=== PATIENT | female | born 1970 | race Caucasian/White ===

== ENCOUNTER 2018-04-22 13:57 | Emergency (ER) | payer BC ==
[2018-04-22] MEDS ORDERED: Sodium Chloride 0.9% 10 ML Syringe FLUSH PRN (14:41)
[2018-04-22] MEDS ORDERED: Dicyclomine 20 MG/2 ML SDV IM ONE (14:41)
[2018-04-22] MEDS ORDERED: Sodium Chloride 0.9% 1,000 ML IV ONE (14:42)
[2018-04-22] MEDS ORDERED: GI Cocktail Oral Solution 30 ML PO ONE (15:32)
[2018-04-22] MEDS ORDERED: HYDROmorphone 0.5 MG/0.5 ML Syringe IVPUSH ONE (15:51)
[2018-04-22 15:54] LABS: SODIUM,NA 139 mmol/L (135-145)
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
[2018-04-22] MEDS ORDERED: Morphine 2 MG/ML Syringe IVPUSH ONE (17:32)
[2018-04-22] MEDS ORDERED: Ondansetron 4 MG/2 ML SDV IV ONE (17:50)
--- NOTE | 2018-04-22 17:50 | CT ---
Clinical history: 47-year-old hypertensive 310 pound female with "severe" episodic abdominal pain. Th is afebrile diabetic patient who has had previous cholecystectomy is on metformin and has an elevated serum creatinine. WBC 10,500. Scan technique: Volume acquisition of data from the abdomen and pelvis obtained without oral or IV co ntrast on emergency basis while patient was lying supine on the Siemens multi slice scanner [facility]. All data archived in the PAC system for storage, reformatting axial/sagittal/coronal planes and study. Interpretation: Abnormal. 1. *Morbidly obese female with what appear to be focal inflammatory changes RLQ i.e. tiny calcified a ppendicolith, dilated appendix, pericecal inflammatory "dirty" peritoneal fat RLQ, small amount of fl uid in the ipsilateral paracolic gutter on the right and dilated loops of small bowel with differenti al air-fluid level suggesting severe ileus or early mechanical bowel obstruction. 2. Surgical clips gallbladder fossa right upper quadrant. Unenhanced liver, stomach and spleen unrema rkable. 3. Note: Large oval 6.5 x 7.5 cm diameter solid mass lesion left upper quadrant abdomen that appears to be separate from (framed by) the stomach, spleen, pancreas and left kidney. Adrenal gland? Recomm end ultrasound and/or MRI exam. 4. Normal right adrenal gland. Normal reniform size, axis and configuration without sign of renal cor tical mass lesion, nephrolithiasis or obstructive uropathy. Uterus right of midline and no adnexal ma ss lesions. 5. Densely calcified wall small caliber aorta iliac vessels. No aneurysm or dissection. Normal heart. 6. Multilevel disc disease and chronic arthritic changes of the lumbar spine. No ventral wall or ingu inal hernias. Lung bases clear. CONCLUSION: Probable acute appendicitis. Close clinical and laboratory correlation please. Large left adrenal mass.
== END 2018-04-22 18:36 ==
LOC: DL.ED 13:57
DX: K37 Unspecified appendicitis (principal); E78.00 Pure hypercholesterolemia, unspecified; I10 Essential (primary) hypertension; J44.9 Chronic obstructive pulmonary disease, unspecified; E11.9 Type 2 diabetes mellitus without complications; F17.210 Nicotine dependence, cigarettes, uncomplicated; Z79.899 Other long term (current) drug therapy
CPT/HCPCS: 36415; 74176; 80053; 81001; 81025; 82150; 83690; 85025; 96361; 96372; 96374; 96375; 99285; A9270; J0500; J1170; J2270; J2405; J7030; J7050

== ENCOUNTER 2021-08-10 08:06 | Emergency (ER) | payer BC ==
[~2021-08-10 08:06] MED LIST: Sodium Chloride 0.9% 10 ML Syringe FLUSH PRN
[2021-08-10] MEDS ORDERED: Albuterol/Ipratropium 3.0-0.5 MG/3 ML Neb Soln NEB ONE (08:31)
--- NOTE | 2021-08-10 08:31 | EDM.PDOC ---
ED HPI GENERAL MEDICAL PROBLEM - General Chief Complaint: Respiratory Problem Stated Complaint: RESPITORY DISTRESS Time Seen by Provider: 08/10/21 08:30 Source of Information: Reports: Patient, Old Records, RN, RN Notes Reviewed History Limitations: Reports: Respiratory Distress - History of Present Illness INITIAL COMMENTS - FREE TEXT/NARRATIVE: Pt presents to ED via POV with c/o SOB with known COVID infection. Pt was admitted to [facility] on 08/07/21. Pt was discharged from [facility] yesterday, 08/09/21, sent on on oxygen at 2L/min. Pt was hospitalized last week on day 12 of her COVID infection. She did not receive Remdesivir due to renal failure and late presentation. Pt states that she was dc'd yesterday because she asked to go home due to feeling "much better". Pt states that her O2 sats were in the low to middle 90s yesterday on 2L. Pt states that today she became increasingly SOB and her noticed that her O2 sats were decreasing into the 70s. Pt states t hat she did take a few puffs of her albuterol inhaler with some relief. Pt states that she was Rx dexamethasone but has not started it. Pt also denies fever. Admits to chest pain, shortness of breath, and a burning sensation in her arms. [facility] records reveal pt has a UTI which was not treated. Urine culture reported today with >100,000 colonies/ml E-Coli and E-Faecalis. While at [facility] pt was diagnosed with MENDEZ, improved with IV hydration, and had a "normal" renal US. Pt has Hx of carcinoid of the cecum in 2018, and left adrenal cortical carcinoma in 2018, COPD, DM type 2, anemia, CKD stage 2, HTN, and obesity. Duration: Constant, Waxing/Waning Location: Reports: Chest, Generalized Quality: Reports: Ache, Burning Severity: Severe Improves with: Reports: None Worsens with: Reports: None Associated Symptoms: Reports: No Other Symptoms - Related Data Allergies Allergy/AdvReac Type Severity Reaction Status Date / Time pioglitazone Allergy Unknown Hives Verified 08/10/21 08:50 cashew nut Allergy Edema Verified 08/10/21 08:50 walnut Allergy Edema Verified 08/10/21 08:50 rosuvastatin AdvReac Unknown Itching Verified 08/10/21 08:50 Home Meds: Home Meds Acetaminophen 650 mg PO Q4H PRN 07/26/18 [History] Albuterol/Ipratropium [DuoNeb 3.0-0.5 MG/3 ML] 3 ml NEB ASDIRECTED PRN 07/26/18 [History] Nystatin 15 gm TP BID PRN 07/26/18 [History] Ondansetron [Ondansetron ODT] 4 mg PO Q8H PRN 07/26/18 [History] carvediloL [Carvedilol] 3.125 mg PO BID 07/26/18 [History] Cholecalciferol (Vitamin D3) [Vitamin D3] 1,000 unit PO DAILY 10/30/18 [History] Famotidine [Pepcid] 10 mg PO ASDIRECTED PRN 10/30/18 [History] Gabapentin [Neurontin] 300 mg PO BID PRN 10/30/18 [History] Aspirin [Aspirin EC] 325 mg PO DAILY 08/10/21 [History] Insulin Degludec [Tresiba] 14 unit SQ BEDTIME 08/10/21 [History] Levothyroxine 175 mcg PO ACBREAKFAST 08/10/21 [History] atorvaSTATin [Lipitor] 20 mg PO BEDTIME 08/10/21 [History] metFORMIN [Glucophage] 1,000 mg PO BIDMEALS 08/10/21 [History] metFORMIN [Glucophage] 500 mg PO ACLUNCH 08/10/21 [History] Past Medical History Cardiovascular History: Reports: High Cholesterol, Hypertension Respiratory History: Reports: Bronchitis, Recurrent, COPD Gastrointestinal History: Reports: [employer] History: Reports: Musculoskeletal History: Reports: Other (See Below) Other Musculoskeletal History: bilateral foot drop Psychiatric History: Reports: Depression Endocrine/Metabolic History: Reports: Diabetes, Type II, Obesity/BMI 30+ Hematologic History: Reports: Anemia, Blood Transfusion(s) Oncologic (Cancer) History: Reports: Brain (Pituitary), Colon - Past Surgical History GI Surgical History: Reports: Cholecystectomy Social & Family History - Family History Family Medical History: No Pertinent Family History - Caffeine Use Caffeine Use: Reports: Coffee, Soda - Living Situation & Occupation Living situation: Reports: , with Spouse ED ROS GENERAL - Review of Systems Review Of Systems: Comprehensive ROS is negative, except as noted in HPI. ED EXAM, GENERAL - Physical Exam Exam: See Below Exam Limited By: No Limitations General Appearance: Alert, Mild Distress, Obese Eye Exam: Bilateral Eye: Normal Inspection Nose: Normal Inspection, No Blood Throat/Mouth: Normal Lips, Normal Voice, No Airway Compromise Head: Atraumatic, Normocephalic Neck: Normal Inspection, Non-Tender, Full Range of Motion Respiratory/Chest: Chest Non-Tender, Decreased Breath Sounds. No: Crackles, Rales, Rhonchi, Wheezing Cardiovascular: Regular Rate, Rhythm, No Edema GI/Abdominal: Normal Bowel Sounds, Soft, Non-Tender, Other (Benign obese abdomen) (Female) Exam: Deferred Rectal (Female) Exam: Heme - Stool Back Exam: Normal Inspection Extremities: Non-Tender, No Pedal Edema, Normal Capillary Refill. No: Cecelia's Sign Neurological: Alert, Oriented, Normal Cognition, No Motor/Sensory Deficits Psychiatric: Normal Mood Skin Exam: Warm, Dry, Intact, Normal Color, No Rash #1 Interpretation EKG Date: 08/10/21 Time: 08:09 Rhythm: Other (sinus rhythm) Rate (Beats/Min): 70 Carter: Normal P-Wave: Present QRS: RBBB ST-T: Other (abnormal T, consider ischemia, inferior leads) QT: Normal Comparison: NA - No Prior EKG Course - Vital Signs Last Recorded V/S: Last Vital Signs Temp 97 F 08/10/21 08:32 Pulse 69 08/10/21 08:32 Resp 14 08/10/21 08:32 BP 147/55 H 08/10/21 08:32 Pulse Ox 95 08/10/21 08:32 - Orders/Labs/Meds Orders: Active Orders 24 hr Category Date Time Status Peripheral IV Care [RC] . DIRECTED Care 08/10/21 08:01 Active RT Aerosol Therapy [RC] ASDIRECTED Care 08/10/21 08:31 Active CULTURE BLOOD [BC] Stat Lab 08/10/21 08:23 Results LACTIC ACID [CHEM] Routine Lab 08/10/21 11:12 Ordered UA RFX BETTY AND CULT IF INDIC [URIN] Stat Lab 08/10/21 08:00 Ordered Sodium Chloride 0.9% [Saline Flush] Med 08/10/21 08:00 Active 10 ml FLUSH ASDIRECTED PRN Blood Culture x2 Reflex Set [OM.PC] Stat Oth 08/10/21 08:56 Ordered Peripheral IV Insertion Adult [OM.PC] Routine Oth 08/10/21 08:00 Ordered Medication Orders Sodium Chloride (Sodium Chloride 0.9% 10 Ml Syringe) 10 ml FLUSH ASDIRECTED PRN PRN Reason: Keep Vein Open Last Admin: 08/10/21 09:16 Dose: 10 ml Documented by: [id number] Labs: Laboratory Tests 08/10/21 08/10/21 08/10/21 Range/Units 08:23 08:23 08:23 WBC 9.2 (5.0-10.0) 10^3/uL RBC 2.37 L (4.2-5.4) 10^6/uL Hgb 7.3 L D (12.0-16.0) g/dL Hct 22.7 L (37.0-47.0) % MCV 95.8 (80-100) fL MCH 30.8 (27.0-34.0) pg MCHC 32.2 L (33.0-35.0) g/dL Plt Count 197 (150-450) 10^3/uL Neut % (Auto) 77.5 H (42.2-75.2) % Lymph % (Auto) 13.2 L (20.5-50.1) % George % (Auto) 9.2 H (2-8) % Eos % (Auto) 0.0 L (1.0-3.0) % Baso % (Auto) 0.1 (0.0-1.0) % Add Manual Diff Yes Neutrophils % (Manual) 78 H (42-75) % Band Neutrophils % 8 % Lymphocytes % (Manual) 11 L (20-50) % Monocytes % (Manual) 3 (2-8) % Microcytosis 2+ moderate Macrocytosis 1+ slight PT (9.0-12.0) SEC INR (0.9-1.2) APTT (22.0-34.0) SEC Sodium 141 (136-145) mmol/L Potassium 4.7 (3.5-5.1) mmol/L Chloride 108 H (98-107) mmol/L Carbon Dioxide 17 L (21-32) mmol/L Anion Gap 20.7 H (7-13) mEq/L BUN 34 H (7-18) mg/dL Creatinine 1.63 H (0.55-1.02) mg/dL Est Cr Clr Drug Dosing 31.57 mL/min Estimated GFR (MDRD) 33 BUN/Creatinine Ratio 20.9 (No establ ref range) Glucose 329 H (70-99) mg/dL Lactic Acid 2.5 H* (0.4-2.0) mmol/L Calcium 7.8 L (8.5-10.1) mg/dL Magnesium 2.4 (1.8-2.4) mg/dL Ferritin (8-252) mg/mL Total Bilirubin 0.9 (0.2-1.0) mg/dL AST 26 (15-37) U/L ALT 18 (14-59) U/L Alkaline Phosphatase 50 (46-116) U/L Lactate Dehydrogenase (81-234) U/L Troponin I High Sens (<=51) pg/mL C-Reactive Protein (0.0-0.9) mg/dL B-Natriuretic Peptide (0-100) pg/ml Total Protein 6.2 L (6.4-8.2) g/dL Albumin 2.4 L (3.4-5.0) g/dL Globulin 3.8 Albumin/Globulin Ratio 0.63 08/10/21 08/10/21 08/10/21 Range/Units 08:23 08:23 08:23 WBC (5.0-10.0) 10^3/uL RBC (4.2-5.4) 10^6/uL Hgb (12.0-16.0) g/dL Hct (37.0-47.0) % MCV (80-100) fL MCH (27.0-34.0) pg MCHC (33.0-35.0) g/dL Plt Count (150-450) 10^3/uL Neut % (Auto) (42.2-75.2) % Lymph % (Auto) (20.5-50.1) % George % (Auto) (2-8) % Eos % (Auto) (1.0-3.0) % Baso % (Auto) (0.0-1.0) % Add Manual Diff Neutrophils % (Manual) (42-75) % Band Neutrophils % % Lymphocytes % (Manual) (20-50) % Monocytes % (Manual) (2-8) % Microcytosis Macrocytosis PT (9.0-12.0) SEC INR (0.9-1.2) APTT (22.0-34.0) SEC Sodium (136-145) mmol/L Potassium (3.5-5.1) mmol/L Chloride (98-107) mmol/L Carbon Dioxide (21-32) mmol/L Anion Gap (7-13) mEq/L BUN (7-18) mg/dL Creatinine (0.55-1.02) mg/dL Est Cr Clr Drug Dosing mL/min Estimated GFR (MDRD) BUN/Creatinine Ratio (No establ ref range) Glucose (70-99) mg/dL Lactic Acid (0.4-2.0) mmol/L Calcium (8.5-10.1) mg/dL Magnesium (1.8-2.4) mg/dL Ferritin 1239 H (8-252) mg/mL Total Bilirubin (0.2-1.0) mg/dL AST (15-37) U/L ALT (14-59) U/L Alkaline Phosphatase (46-116) U/L Lactate Dehydrogenase 395 H (81-234) U/L Troponin I High Sens 112 H* (<=51) pg/mL C-Reactive Protein 4.3 H (0.0-0.9) mg/dL B-Natriuretic Peptide 227 H (0-100) pg/ml Total Protein (6.4-8.2) g/dL Albumin (3.4-5.0) g/dL Globulin Albumin/Globulin Ratio 08/10/ Range/Units 08:23 WBC (5.0-10.0) 10^3/uL RBC (4.2-5.4) 10^6/uL Hgb (12.0-16.0) g/dL Hct (37.0-47.0) % MCV (80-100) fL MCH (27.0-34.0) pg MCHC (33.0-35.0) g/dL Plt Count (150-450) 10^3/uL Neut % (Auto) (42.2-75.2) % Lymph % (Auto) (20.5-50.1) % George % (Auto) (2-8) % Eos % (Auto) (1.0-3.0) % Baso % (Auto) (0.0-1.0) % Add Manual Diff Neutrophils % (Manual) (42-75) % Band Neutrophils % % Lymphocytes % (Manual) (20-50) % Monocytes % (Manual) (2-8) % Microcytosis Macrocytosis PT 10.9 D (9.0-12.0) SEC INR 1.1 (0.9-1.2) APTT 24.9 (22.0-34.0) SEC Sodium (136-145) mmol/L Potassium (3.5-5.1) mmol/L Chloride (98-107) mmol/L Carbon Dioxide (21-32) mmol/L Anion Gap (7-13) mEq/L BUN (7-18) mg/dL Creatinine (0.55-1.02) mg/dL Est Cr Clr Drug Dosing mL/min Estimated GFR (MDRD) BUN/Creatinine Ratio (No establ ref range) Glucose (70-99) mg/dL Lactic Acid (0.4-2.0) mmol/L Calcium (8.5-10.1) mg/dL Magnesium (1.8-2.4) mg/dL Ferritin (8-252) mg/mL Total Bilirubin (0.2-1.0) mg/dL AST (15-37) U/L ALT (14-59) U/L Alkaline Phosphatase (46-116) U/L Lactate Dehydrogenase (81-234) U/L Troponin I High Sens (<=51) pg/mL C-Reactive Protein (0.0-0.9) mg/dL B-Natriuretic Peptide (0-100) pg/ml Total Protein (6.4-8.2) g/dL Albumin (3.4-5.0) g/dL Globulin Albumin/Globulin Ratio Meds: Medications Generic Name Dose Route Start Last Admin Trade Name Freq PRN Reason Stop Dose Admin Sodium Chloride 10 ml 08/10/21 08:00 08/10/21 09:16 Sodium Chloride 0.9% 10 Ml Syringe FLUSH 10 ml ASDIRECTED PRN Administration Keep Vein Open Discontinued Medications Generic Name Dose Route Start Last Admin Trade Name Freq PRN Reason Stop Dose Admin Albuterol/Ipratropium 3 ml 08/10/21 08:31 08/10/21 08:40 Albuterol/Ipratropium 3.0-0.5 Mg/3 Ml Neb Soln NEB 08/10/21 08:32 3 ml ONETIME ONE Administration Dexamethasone 6 mg 08/10/21 08:42 08/10/21 09:54 Dexamethasone 4 Mg/Ml Sdv IVPUSH 08/10/21 08:43 6 mg ONETIME ONE Administration - Radiology Interpretation Free Text/Narrative:: [facility] [place] [facility] Final Radiology Report Call: [phone] assistance Online chat: [email or web address] Name: NIKITA NAVARRETE Age: 51Years F Date: 08/10/2021 SSN: -- : [id number] Study: CT CHEST WO CONT Requesting Physician: CATHIE COLE Images: [id number] Addl Studies: Provided Clinical History: COVID, hypoxia Contrast: Without Contrast Medium: Contrast Amount: Contrast Method: Page 1 of 2 PROCEDURE INFORMATION: Exam: CT Chest Without Contrast; Diagnostic Exam date and time: 08/10/2021 8:56 AM Age: 51 years old Clinical indication: Other: Covid, hypoxia TECHNIQUE: Imaging protocol: Diagnostic computed tomography of the chest without contrast. Radiation optimization: All CT scans at this facility use at least one of these dose optimization techniques: automated exposure control; mA and/or kV adjustment per patient size (includes targeted exams where dose is matched to clinical indication); or iterative reconstruction. COMPARISON: CT Chest Abdomen Pelvis wo Cont 08/04/2018 8:36 AM FINDINGS: Trachea: 1.5 cm right paratracheal node which may be reactive. Lungs: Moderate diffuse bilateral patchy ground-glass opacities throughout both lungs, right greater than left most compatible with Covid-19 pneumonitis. Pleural spaces: Unremarkable. No pneumothorax. No pleural effusion. Heart: Unremarkable. No cardiomegaly. No pericardial effusion. Aorta: Unremarkable. No aortic aneurysm. Lymph nodes: Few subcentimeter mediastinal nodes. Diaphragm: Small hiatal hernia is present. Spleen: The spleen is mildly prominent. Bones/joints: Unremarkable. No acute fracture. Soft tissues: Unremarkable. IMPRESSION: NIKITA NAVARRETE | Final Radiology Report CONFIDENTIALITY STATEMENT This report is intended only for use by the referring physician, and only in accordance with law. If you received this in error, call [phone]. Page 2 of 2 1. Moderate diffuse bilateral patchy ground-glass opacities throughout both lungs, right greater than left most compatible with Covid-19 pneumonitis. 2. 1.5 cm right paratracheal node which may be reactive. 3. Remainder of findings as described above. Thank you for allowing us to participate in the care of your patient. Dictated and Authenticated by: Nona Osborn MD 08/10/2021 10:27 AM Central Time ([place] & [place]) - Re-Assessments/Exams Free Text/Narrative Re-Assessment/Exam: 08/10/21 11:23 Pt refuses to be admitted, and chooses to leave AMA. I explained the exam and diagnostic findings to the pt, and that her comorbidities increase her risk of complications and from COVID, but she still insists on going home AMA. She has oxygen, nebulizers, and decadron at home and agrees to use them. I will prescribe Cipro for her untreated UTI. Pt is welcome to return to ER if she changes her mind or if her condition worsens. Departure - Departure Time of Disposition: 11:27 Disposition: Against Medical Advice 07 Condition: Serious Clinical Impression: Pneumonia due to COVID-19 virus, Hypoxia, History of COPD, History of diabetes mellitus, type II UTI (urinary tract infection) Qualifiers: Urinary tract infection type: site unspecified Hematuria presence: without hematuria Qualified Code(s): N39.0 - Urinary tract infection, site not specified CKD (chronic kidney disease) Qualifiers: Chronic kidney disease stage: unspecified stage Qualified Code(s): N18.9 - Chronic kidney disease, unspecified - Discharge Information *PRESCRIPTION DRUG MONITORING PROGRAM REVIEWED*: Not Applicable *COPY OF PRESCRIPTION DRUG MONITORING REPORT IN PATIENT SOHA: Not Applicable Instructions: COVID-19 Frequently Asked Questions, Urinary Tract Infection, Adult, Chronic Kidney Disease, Adult, [id number] Forms: ED Department Discharge Additional Instructions: Rx: Cipro 500mg for urinary tract infection. Take Dexamethasone (Decadron) as previously prescribed. Use oxygen at 2 liters continuously. Rest, avoid exertion. Call 911 or return to ER if you develop difficulty breathing or respiratory distress. Sepsis Event Note (ED) - Focused Exam Vital Signs: Vital Signs Temp Pulse Resp BP Pulse Ox Pulse Ox 10/10/21 08:32 97 F 69 14 147/55 H 95 08/10/21 08:31 70 93 L - My Orders Last 24 Hours: My Active Orders 08/10/21 08:23 CULTURE BLOOD [BC] Stat 08/10/21 08:31 RT Aerosol Therapy [RC] ASDIRECTED 08/10/21 08:56 Blood Culture x2 Reflex Set [OM.PC] Stat - Assessment/Plan Last 24 Hours: My Active Orders 08/10/21 08:23 CULTURE BLOOD [BC] Stat 08/10/21 08:31 RT Aerosol Therapy [RC] ASDIRECTED 08/10/21 08:56 Blood Culture x2 Reflex Set [OM.PC] Stat
[2021-08-10] MEDS ORDERED: Dexamethasone 4 MG/ML SDV IVPUSH ONE (08:42)
[2021-08-10 09:13] LABS: PTT,PARTIAL THROMBOPLSTIN TIME 24.9 SEC (22.0-34.0)
[2021-08-10 09:24] LABS: ANION GAP 20.7 mEq/L (7-13)
--- NOTE | 2021-08-10 10:27 | CT ---
PROCEDURE INFORMATION: Exam: CT Chest Without Contrast; Diagnostic Exam date and time: 08/10/2021 8:56 AM Age: 51 years old Clinical indication: Other: Covid, hypoxia TECHNIQUE: Imaging protocol: Diagnostic computed tomography of the chest without contrast. Radiation optimization: All CT scans at this facility use at least one of these dose optimization techniques: automated exposure control; mA and/or kV adjustment per patient size (includes targeted exams where dose is matched to clinical indication); or iterative reconstruction. COMPARISON: CT Chest Abdomen Pelvis wo Cont 08/04/2018 8:36 AM FINDINGS: Trachea: 1.5 cm right paratracheal node which may be reactive. Lungs: Moderate diffuse bilateral patchy ground-glass opacities throughout both lungs, right greater than left most compatible with Covid-19 pneumonitis. Pleural spaces: Unremarkable. No pneumothorax. No pleural effusion. Heart: Unremarkable. No cardiomegaly. No pericardial effusion. Aorta: Unremarkable. No aortic aneurysm. Lymph nodes: Few subcentimeter mediastinal nodes. Diaphragm: Small hiatal hernia is present. Spleen: The spleen is mildly prominent. Bones/joints: Unremarkable. No acute fracture. Soft tissues: Unremarkable. IMPRESSION: 1. Moderate diffuse bilateral patchy ground-glass opacities throughout both lungs, right greater than left most compatible with Covid-19 pneumonitis. 2. 1.5 cm right paratracheal node which may be reactive. 3. Remainder of findings as described above.
== END 2021-08-10 11:36 | disposition left against medical advice (07) ==
LOC: DL.ED 08:06
DX: U07.1 COVID-19 (principal); J12.82 Pneumonia due to coronavirus disease 2019; R09.82 Postnasal drip; J44.9 Chronic obstructive pulmonary disease, unspecified; I12.9 Hypertensive chronic kidney disease with stage 1 through stage 4 chronic kidney disease, or unspecified chronic kidney disease; E11.22 Type 2 diabetes mellitus with diabetic chronic kidney disease; N18.9 Chronic kidney disease, unspecified; N39.0 Urinary tract infection, site not specified; K21.9 Gastro-esophageal reflux disease without esophagitis; E78.00 Pure hypercholesterolemia, unspecified; E66.9 Obesity, unspecified; Z68.42 Body mass index [BMI] 45.0-49.9, adult; Z88.8 Allergy status to other drugs, medicaments and biological substances; Z91.018 Allergy to other foods; Z79.82 Long term (current) use of aspirin; Z79.84 Long term (current) use of oral hypoglycemic drugs; Z79.899 Other long term (current) drug therapy
CPT/HCPCS: 36415; 71250; 80053; 82272; 82728; 83605; 83615; 83735; 83880; 84484; 85025; 85610; 85730; 86140; 87040; 93005; 94640; 96374; 99285; J1100; J7620-GY

== ENCOUNTER 2022-08-26 17:00 | Emergency (ER) | payer BC ==
[2022-08-26] MEDS: Ciprofloxacin 500 MG Tab PO ONE (19:43)
[2022-08-26] MEDS: Phenazopyridine 95 MG Tab PO ONE (19:43)
== END 2022-08-26 19:51 | disposition home or self-care (01) ==
LOC: DL.ED 17:00
DX: N39.0 Urinary tract infection, site not specified (principal); J44.9 Chronic obstructive pulmonary disease, unspecified; E11.9 Type 2 diabetes mellitus without complications; E66.9 Obesity, unspecified; Z68.43 Body mass index [BMI] 50.0-59.9, adult; Z88.8 Allergy status to other drugs, medicaments and biological substances; Z91.018 Allergy to other foods; Z79.899 Other long term (current) drug therapy; Z79.82 Long term (current) use of aspirin; Z79.84 Long term (current) use of oral hypoglycemic drugs; Z87.891 Personal history of nicotine dependence
CPT/HCPCS: 81001; 87086; 87088; 87186; 99283; A9270

== ENCOUNTER 2022-11-11 17:55 | Inpatient (IN) | payer BC ==
[2022-11-11] MEDS ORDERED: methylPREDNISolone Sodium Succinate 125 MG/2 ML SDV IVPUSH ONE (18:06)
[2022-11-11] MEDS ORDERED: Albuterol/Ipratropium 3.0-0.5 MG/3 ML Neb Soln NEB ONE (18:06)
[2022-11-11] MEDS ORDERED: Magnesium Sulfate/Water 2 GM in Premix Bag 1 BAG IV ONE ×4 (18:09)
[2022-11-11 18:43] LABS: O2 DELIVERY DEVICE NASAL CANNULA
[2022-11-11 18:53] LABS: PCO2 ARTERIAL 32 mmHg (35-45)
[2022-11-11 18:54] LABS: BASE EXCESS ARTERIAL 2 mmol/L ((-2)-(+3)); BICARBONATE,ARTERIAL 24.9 mmol/L (22-26); O2 SATURATION ARTERIAL 100 % (95-100); PO2 ARTERIAL 154 mmHg (70-100)
[2022-11-11] MEDS: Sodium Chloride 0.9% 10 ML Syringe FLUSH PRN (18:54)
[2022-11-11 19:07] LABS: RESPIRATORY SYNCYTIAL VIR NAA NEGATIVE (NEGATIVE)
[2022-11-11 19:09] LABS: CORONAVIRUS COVID-19 NAA POSITIVE (NEGATIVE)
[2022-11-11] MEDS ORDERED: Albuterol 0.083% 2.5 MG/3 ML Neb Soln NEB ONE (19:32)
[2022-11-11 19:35] LABS: ANION GAP 14.8 mEq/L (7-13)
[2022-11-11 19:39] LABS: PTT,PARTIAL THROMBOPLSTIN TIME 24.6 SEC (22.0-34.0)
[2022-11-11] MEDS ORDERED: Bumetanide 1 MG/4 ML MDV IVPUSH ONE (19:39)
[2022-11-11] MEDS ORDERED: Heparin Sodium 5,000 Units/ML Vial IVPUSH ONE (19:43)
[2022-11-11] MEDS: Heparin Sodium/0.45% NaCl 25,000 UNITS/500 ML BAG IV SCH (20:20)
[2022-11-11] MEDS ORDERED: Carvedilol 6.25 MG Tab PO ONE (21:33)
[2022-11-11] MEDS ORDERED: Lactulose Soln 10 GM/15 ML 30 ML UD Cup PO ONE (23:55)
[2022-11-12] MEDS ORDERED: Albuterol/Ipratropium 3.0-0.5 MG/3 ML Neb Soln NEB ONE (00:49)
[2022-11-12] MEDS ORDERED: Benzonatate 100 MG Cap PO ONE (01:32)
[2022-11-12 05:13] LABS: PTT,PARTIAL THROMBOPLSTIN TIME 24.8 SEC (22.0-34.0)
[2022-11-12 05:15] LABS: ANION GAP 14.5 mEq/L (7-13)
[2022-11-12] MEDS ORDERED: Lactated Ringers 1,000 ML IV ONE (05:32)
[2022-11-12] MEDS ORDERED: Albuterol 0.083% 2.5 MG/3 ML Neb Soln NEB ONE (05:36)
[2022-11-12] MEDS ORDERED: Insulin Regular, Human 100 Units/ML 3 ML Vial IV ONE (05:36)
[2022-11-12] MEDS ORDERED: Sodium Chloride 0.9% 1,000 ML IV ONE (05:43)
[2022-11-12] MEDS ORDERED: Heparin Sodium 5,000 Units/ML Vial IVPUSH ONE ×2 (05:45→19:26)
[2022-11-12] MEDS: Sodium Chloride 0.9% 10 ML Syringe FLUSH PRN ×2 (06:18→15:16)
[2022-11-12] MEDS ORDERED: Bumetanide 1 MG/4 ML MDV IVPUSH ONE (06:28)
[2022-11-12] MEDS ORDERED: Calcium Gluconate 10% 1 GM/10 ML SDV IVPUSH ONE (07:01)
[2022-11-12 09:10] LABS: ANION GAP 16.8 mEq/L (7-13)
[2022-11-12] MEDS ORDERED: Sodium Polystyrene Sulfonate 15 GM/60 ML Susp 60 ML Bot PO ONE ×2 (09:18→15:15)
[2022-11-12 10:27] LABS: ALLEN TEST PERFORMED
[2022-11-12] MEDS: Heparin Sodium/0.45% NaCl 25,000 UNITS/500 ML BAG IV SCH (12:19)
[2022-11-12] MEDS ORDERED: Docusate Sodium 100 MG Cap PO PRN (13:05)
[2022-11-12] MEDS ORDERED: Ondansetron 4 MG Tab.DIS PO PRN (13:05)
[2022-11-12] MEDS ORDERED: Glucagon,Human Recombinant 1 MG Vial IM PRN (13:05)
[2022-11-12] MEDS ORDERED: Ondansetron 4 MG/2 ML SDV IVPUSH PRN (13:05)
[2022-11-12] MEDS ORDERED: 50% Dextrose in Water 50 ML Syringe IVPUSH PRN (13:05)
[2022-11-12 13:20] LABS: ANION GAP 14.1 mEq/L (7-13)
[2022-11-12] MEDS: Sodium Chloride 0.9% 1,000 ML IV SCH (15:08)
[2022-11-12] MEDS: Albuterol/Ipratropium 3.0-0.5 MG/3 ML Neb Soln NEB SCH ×3 (15:10→21:36)
[2022-11-12] MEDS: methylPREDNISolone Sodium Succinate 40 MG/1 ML SDV IVPUSH SCH ×2 (15:11→17:15)
[2022-11-12] MEDS ORDERED: Sodium Chloride 0.65% Nasal Spray 45 ML Bottle NAS PRN (16:35)
[2022-11-12] MEDS: Insulin Lispro 100 Units/ML 3 ML Vial SUBCUT SCH ×2 (17:13→21:46)
[2022-11-12] MEDS ORDERED: LORazepam 2 MG/ML SDV IVPUSH ONE (17:37)
[2022-11-12] MEDS: Acetaminophen 325 MG Tab PO PRN (21:36)
[2022-11-12] MEDS: Sodium Chloride 0.9% 10 ML Syringe FLUSH SCH (21:36)
[2022-11-13] MEDS: methylPREDNISolone Sodium Succinate 40 MG/1 ML SDV IVPUSH SCH ×4 (00:32→17:50)
[2022-11-13] MEDS: Albuterol/Ipratropium 3.0-0.5 MG/3 ML Neb Soln NEB SCH ×7 (02:15→21:53)
[2022-11-13] MEDS: Sodium Chloride 0.9% 1,000 ML IV SCH (03:47)
[2022-11-13 08:13] LABS: ANION GAP 13.2 mEq/L (7-13)
[2022-11-13] MEDS: Insulin Lispro 100 Units/ML 3 ML Vial SUBCUT SCH ×5 (08:34→21:53)
[2022-11-13] MEDS: Sodium Chloride 0.9% 10 ML Syringe FLUSH SCH ×2 (08:37→21:00)
[2022-11-13] MEDS: Heparin Sodium/0.45% NaCl 25,000 UNITS/500 ML BAG IV SCH (08:39)
[2022-11-13] MEDS: Acetaminophen 325 MG Tab PO PRN (17:51)
[2022-11-13] MEDS: Carvedilol 6.25 MG Tab PO SCH (17:53)
[2022-11-13] MEDS: Gabapentin 400 MG Cap PO SCH (20:30)
[2022-11-13] MEDS ORDERED: Bumetanide 1 MG Tab PO SCH (21:00)
[2022-11-13] MEDS ORDERED: atorvaSTATin 20 MG Tab PO SCH (21:00)
[2022-11-14] MEDS: methylPREDNISolone Sodium Succinate 40 MG/1 ML SDV IVPUSH SCH ×3 (00:09→12:08)
[2022-11-14] MEDS: Albuterol/Ipratropium 3.0-0.5 MG/3 ML Neb Soln NEB SCH ×3 (02:36→09:11)
[2022-11-14] MEDS ORDERED: Levothyroxine 100 MCG Tab PO SCH (06:00)
[2022-11-14] MEDS ORDERED: Levothyroxine 75 MCG Tab PO SCH (06:00)
[2022-11-14 06:59] LABS: ANION GAP 13.2 mEq/L (7-13)
[2022-11-14] MEDS ORDERED: Bumetanide 1 MG/4 ML MDV IVPUSH SCH (09:00)
[2022-11-14] MEDS ORDERED: Aspirin 325 MG Tab.EC PO SCH (09:00)
[2022-11-14] MEDS ORDERED: Famotidine 20 MG Tab PO SCH (09:00)
[2022-11-14] MEDS: Sodium Chloride 0.9% 10 ML Syringe FLUSH SCH (09:13)
[2022-11-14] MEDS: Sodium Chloride 0.9% 10 ML Syringe FLUSH PRN (09:16)
[2022-11-14] MEDS: Gabapentin 400 MG Cap PO SCH (09:17)
[2022-11-14] MEDS: Carvedilol 6.25 MG Tab PO SCH (09:17)
[2022-11-14] MEDS: Insulin Lispro 100 Units/ML 3 ML Vial SUBCUT SCH ×2 (09:18→12:05)
== END 2022-11-14 12:50 | disposition home or self-care (01) | DRG 137 ==
LOC: DL.ED 17:55 → DL.MS 11-12 11:51
PROVIDERS: ADMIT Hospitalist; ATTEND Hospitalist
DX: U07.1 COVID-19 (principal); E87.5 Hyperkalemia; N17.9 Acute kidney failure, unspecified; J44.1 Chronic obstructive pulmonary disease with (acute) exacerbation; H54.7 Unspecified visual loss; E78.00 Pure hypercholesterolemia, unspecified; K21.9 Gastro-esophageal reflux disease without esophagitis; F32.A Depression, unspecified; E11.9 Type 2 diabetes mellitus without complications; E66.9 Obesity, unspecified; F17.200 Nicotine dependence, unspecified, uncomplicated; Z68.43 Body mass index [BMI] 50.0-59.9, adult; Z91.018 Allergy to other foods; Z79.82 Long term (current) use of aspirin; Z79.4 Long term (current) use of insulin; Z79.84 Long term (current) use of oral hypoglycemic drugs; Z79.899 Other long term (current) drug therapy
CPT/HCPCS: 0241U; 36415; 36600; 71045; 80048; 80053; 81001; 82803; 82947; 83605; 83735; 83880; 84484; 85025; 85379; 85610; 85730; 87040; 93005; 94640; 99223; 99232; 99239; A9270-GY; J0610; J1644; J1815-GY; J2060; J2405; J2920; J2930; J3475; J3490; J7030; J7613-GY; J7620-GY

== ENCOUNTER 2023-01-19 12:01 | Emergency (ER) | payer BC ==
[2023-01-19] MEDS ORDERED: Sodium Chloride 0.9% 10 ML Syringe FLUSH PRN (12:05)
[2023-01-19 12:58] LABS: PTT,PARTIAL THROMBOPLSTIN TIME 22.3 SEC (22.0-34.0)
[2023-01-19 13:07] LABS: ANION GAP 14.3 mEq/L (7-13); CHLORIDE,CL 102 mmol/L (98-107); SODIUM,NA 137 mmol/L (136-145)
[2023-01-19 13:10] LABS: ESTIMATED GFR 20 mL/min (>=60)
[2023-01-19 13:27] LABS: CORONAVIRUS COVID-19 NAA NEGATIVE (NEGATIVE); RESPIRATORY SYNCYTIAL VIR NAA NEGATIVE (NEGATIVE)
[2023-01-19] MEDS ORDERED: Flumazenil 0.1 MG/ML 5 ML MDV IVPUSH PRN (14:29)
[2023-01-19] MEDS ORDERED: LORazepam 2 MG/ML SDV IVPUSH ONE (14:29)
== END 2023-01-19 15:04 ==
LOC: DL.ED 12:01
DX: D64.9 Anemia, unspecified (principal); R77.8 Other specified abnormalities of plasma proteins; E11.9 Type 2 diabetes mellitus without complications; E66.9 Obesity, unspecified; Z68.43 Body mass index [BMI] 50.0-59.9, adult; Z91.018 Allergy to other foods; Z79.82 Long term (current) use of aspirin; Z86.16 Personal history of COVID-19; Z79.899 Other long term (current) drug therapy; Z79.4 Long term (current) use of insulin; Z20.822 Contact with and (suspected) exposure to COVID-19
CPT/HCPCS: 0241U; 36415; 36430; 71045; 80053; 81001; 82150; 82272; 82947; 83605; 83690; 83735; 83880; 84100; 84145; 84443; 84484; 85025; 85379; 85610; 85730; 86140; 86850; 86900; 86901; 86920; 86922; 87040; 93005; 96374; 99285; J2060; P9016

== ENCOUNTER 2023-06-01 13:06 | Inpatient (IN) | payer BC ==
[2023-06-01] MEDS ORDERED: Sodium Chloride 0.9% 10 ML Syringe FLUSH PRN (13:43)
[2023-06-01] MEDS ORDERED: Ondansetron 4 MG/2 ML SDV IV ONE (13:45)
[2023-06-01] MEDS ORDERED: Sodium Chloride 0.9% 1,000 ML IV ONE ×3 (13:45→17:29)
[2023-06-01] MEDS ORDERED: Acetaminophen 500 MG Tab PO ONE (13:46)
[2023-06-01] MEDS ORDERED: Vancomycin 2 GM in Sodium Chloride 0.9% 500 ML IV ONE (13:55)
[2023-06-01] MEDS ORDERED: diphenhydrAMINE 50 MG/ML SDV IVPUSH ONE (13:55)
[2023-06-01 14:14] LABS: BASOPHILS PERCENT AUTO 0.2 % (0.0-1.0); EOSINOPHILS PERCENT AUTO 5.8 % (1.0-3.0); HEMATOCRIT 27.7 % (37.0-47.0); HEMOGLOBIN 8.9 g/dL (12.0-16.0); LYMPHOCYTES PERCENT AUTO 6.3 % (20.5-50.1); MEAN CORPUSCULAR HEMOGLOBIN 33.8 pg (27.0-34.0); MEAN CORPUSCULAR HGB CONC 32.1 g/dL (33.0-35.0); MEAN CORPUSCULAR VOLUME 105.3 fL (80-100); MONOCYTES PERCENT AUTO 5.6 % (2-8); NEUTROPHILS PERCENT AUTO 82.1 % (42.2-75.2); PLATELET COUNT,PLT 79 10^3/uL (150-450); RED BLOOD CELL COUNT 2.63 10^6/uL (4.2-5.4); WHITE BLOOD CELL COUNT,WBC 8.2 10^3/uL (5.0-10.0)
[2023-06-01 14:33] LABS: A/G RATIO 0.9; ALBUMIN 3.4 g/dL (3.4-5.0); ANION GAP 15.5 mEq/L (7-13); BILIRUBIN TOTAL 1.7 mg/dL (0.2-1.0); BUN/CREATININE RATIO 24.2 (No establ ref range); CALCIUM 9.4 mg/dL (8.5-10.1); CREATININE 2.6 mg/dL (0.55-1.02); EST CRCL DRUG DOSING (CG) 17.56 mL/min; POTASSIUM,K 4.5 mmol/L (3.5-5.1); PROTEIN TOTAL,TP 7.3 g/dL (6.4-8.2)
[2023-06-01 14:40] LABS: LACTIC ACID 2.9 mmol/L (0.4-2.0)
[2023-06-01] MEDS ORDERED: Sodium Chloride 0.9% 1,000 ML IV SCH (18:45)
[2023-06-01] MEDS ORDERED: Albuterol/Ipratropium 3.0-0.5 MG/3 ML Neb Soln NEB PRN (18:47)
[2023-06-01] MEDS ORDERED: Acetaminophen 325 MG Tab PO PRN (18:47)
[2023-06-01] MEDS ORDERED: Albuterol 6.7 GM Inhaler INH PRN (18:47)
[2023-06-01] MEDS ORDERED: Ondansetron 4 MG Tab.DIS PO PRN (18:49)
[2023-06-01] MEDS ORDERED: Carvedilol 6.25 MG Tab PO SCH (20:00)
[2023-06-01] MEDS ORDERED: Piperacillin/Tazobactam 2.25 GM in Sodium Chloride 0.9% 50 ML IV SCH ×2 (20:00→21:00)
[2023-06-01] MEDS ORDERED: LORazepam 2 MG/ML SDV IVPUSH PRN (20:32)
[2023-06-01] MEDS ORDERED: 50% Dextrose in Water 50 ML Syringe IVPUSH PRN (20:37)
[2023-06-01] MEDS ORDERED: Glucagon,Human Recombinant 1 MG Vial IM PRN (20:37)
[2023-06-01] MEDS ORDERED: LORazepam 2 MG/ML SDV ONE (20:51)
[2023-06-01] MEDS ORDERED: Heparin Sodium 5,000 Units/ML Vial SUBCUT SCH (21:00)
[2023-06-01] MEDS ORDERED: atorvaSTATin 20 MG Tab PO SCH (21:00)
[2023-06-01] MEDS ORDERED: Gabapentin 400 MG Cap PO SCH (21:00)
[2023-06-01 21:19] LABS: APPEARANCE,URINE CLEAR (CLEAR); BILIRUBIN,URINE NEGATIVE (NEGATIVE); COLOR,URINE YELLOW (YELLOW); GLUCOSE,URINE NEGATIVE (NEGATIVE); KETONES,URINE NEGATIVE (NEGATIVE); LEUKOCYTE ESTERASE,URINE NEGATIVE (NEGATIVE); NITRITE,URINE NEGATIVE (NEGATIVE); OCCULT BLOOD,URINE SMALL (NEGATIVE); PH,URINE 5.5 (5.0-9.0); PROTEIN,URINE 100 (NEGATIVE); UROBILINOGEN,URINE 0.2 mg/dL (0.2-1.0)
[2023-06-01 21:27] LABS: AMORPHOUS SEDIMENT,URINE MODERATE /HPF (NOT SEEN); BACTERIA,URINE MODERATE /HPF (0-FEW/HPF); EPITHELIAL CELLS,URINE MODERATE /HPF (NOT SEEN); MUCUS,URINE FEW /LPF (NOT SEEN); RBC,URINE 0-5 /HPF (0-5); WBC,URINE 0-5 /HPF (0-5/HPF)
[2023-06-01] MEDS ORDERED: fentaNYL 100 MCG/2 ML SDV IVPUSH PRN (22:49)
[2023-06-01 23:26] LABS: O2 DELIVERY DEVICE RESUSCITATION BAG
[2023-06-01 23:27] LABS: BASE EXCESS ARTERIAL -5 mmol/L ((-2)-(+3)); BICARBONATE,ARTERIAL 23.7 mmol/L (22-26); O2 SATURATION ARTERIAL 97 % (95-100); PO2 ARTERIAL 100 mmHg (70-100)
[2023-06-01 23:29] LABS: PCO2 ARTERIAL 68 mmHg (35-45); PH,ARTERIAL 7.17 (7.35-7.45)
[2023-06-02] MEDS ORDERED: Levothyroxine 100 MCG Tab PO SCH (06:00)
[2023-06-02] MEDS ORDERED: Levothyroxine 75 MCG Tab PO SCH (06:00)
[2023-06-02] MEDS ORDERED: Insulin Lispro 100 Units/ML 3 ML Vial SUBCUT SCH (08:00)
[2023-06-02] MEDS ORDERED: Aspirin 325 MG Tab.EC PO SCH (09:00)
[2023-06-02] MEDS ORDERED: Famotidine 20 MG Tab PO SCH (09:00)
== END 2023-06-02 01:05 | DRG 720 ==
LOC: DL.ED 13:06 → DL.MS 17:34
PROVIDERS: ADMIT Hospitalist; ATTEND Hospitalist
PROC: 5A1935Z Respiratory Ventilation, Less than 24 Consecutive Hours (ICD-10-PCS; principal; 2023-06-01)
PROC: 4A033R1 Measurement of Arterial Saturation, Peripheral, Percutaneous Approach (ICD-10-PCS; 2023-06-01)
DX: A41.9 Sepsis, unspecified organism (principal); L03.311 Cellulitis of abdominal wall; R65.10 Systemic inflammatory response syndrome (SIRS) of non-infectious origin without acute organ dysfunction; E78.00 Pure hypercholesterolemia, unspecified; K21.9 Gastro-esophageal reflux disease without esophagitis; K63.89 Other specified diseases of intestine; E11.65 Type 2 diabetes mellitus with hyperglycemia; J44.9 Chronic obstructive pulmonary disease, unspecified; F32.9 Major depressive disorder, single episode, unspecified; E66.01 Morbid (severe) obesity due to excess calories; I12.9 Hypertensive chronic kidney disease with stage 1 through stage 4 chronic kidney disease, or unspecified chronic kidney disease; N18.5 Chronic kidney disease, stage 5; E11.22 Type 2 diabetes mellitus with diabetic chronic kidney disease; N39.0 Urinary tract infection, site not specified; G47.33 Obstructive sleep apnea (adult) (pediatric); D63.1 Anemia in chronic kidney disease; H54.7 Unspecified visual loss; F17.210 Nicotine dependence, cigarettes, uncomplicated; Z20.822 Contact with and (suspected) exposure to COVID-19; Z68.43 Body mass index [BMI] 50.0-59.9, adult; Z87.19 Personal history of other diseases of the digestive system; Z79.82 Long term (current) use of aspirin; Z79.4 Long term (current) use of insulin; Z79.890 Hormone replacement therapy; Z91.018 Allergy to other foods; Z79.52 Long term (current) use of systemic steroids; Z79.891 Long term (current) use of opiate analgesic; Z90.49 Acquired absence of other specified parts of digestive tract; Z85.038 Personal history of other malignant neoplasm of large intestine; Z79.51 Long term (current) use of inhaled steroids; Z79.899 Other long term (current) drug therapy; Z98.890 Other specified postprocedural states
CPT/HCPCS: 31500; 36415; 36600; 71045; 80053; 81001; 82803; 83605; 84145; 84484; 85025; 87040; 87804; 94002; 96365; 96366; 96375; 99285; 99285-25; A9270-GY; J1200; J2060; J2405; J2543; J3370; J3490; J7030; J7040; U0002

== ENCOUNTER 2023-08-11 20:06 | Emergency (ER) | payer BC ==
[2023-08-11] MEDS ORDERED: Cephalexin 500 MG Cap PO ONE (21:18)
[2023-08-11] MEDS ORDERED: Clindamycin HCl 150 MG Cap PO ONE (21:24)
== END 2023-08-11 21:48 | disposition home or self-care (01) ==
LOC: DL.ED 20:06
DX: L03.311 Cellulitis of abdominal wall (principal); J44.9 Chronic obstructive pulmonary disease, unspecified; E78.00 Pure hypercholesterolemia, unspecified; I10 Essential (primary) hypertension; E11.9 Type 2 diabetes mellitus without complications; F17.210 Nicotine dependence, cigarettes, uncomplicated; E66.9 Obesity, unspecified; Z68.42 Body mass index [BMI] 45.0-49.9, adult; Z91.018 Allergy to other foods; Z79.899 Other long term (current) drug therapy; Z79.82 Long term (current) use of aspirin; Z88.6 Allergy status to analgesic agent; Z79.4 Long term (current) use of insulin; Z86.16 Personal history of COVID-19; Z90.49 Acquired absence of other specified parts of digestive tract
CPT/HCPCS: 99283; A9270

== ENCOUNTER 2023-12-24 17:21 | Observation (INO) | payer BC ==
[2023-12-24 18:04] LABS: BASOPHILS PERCENT AUTO 0.7 % (0.0-1.0); EOSINOPHILS PERCENT AUTO 3.4 % (1.0-3.0); HEMOGLOBIN 8.9 g/dL (12.0-16.0); LYMPHOCYTES PERCENT AUTO 36.3 % (20.5-50.1); MEAN CORPUSCULAR HEMOGLOBIN 30.4 pg (27.0-34.0); MEAN CORPUSCULAR HGB CONC 30.7 g/dL (33.0-35.0); MONOCYTES PERCENT AUTO 13.8 % (2-8); NEUTROPHILS PERCENT AUTO 45.8 % (42.2-75.2); PLATELET COUNT,PLT 80 10^3/uL (150-450); RED BLOOD CELL COUNT 2.93 10^6/uL (4.2-5.4); WHITE BLOOD CELL COUNT,WBC 4.4 10^3/uL (5.0-10.0)
[2023-12-24 18:26] LABS: ALBUMIN 2.9 g/dL (3.4-5.0); ANION GAP 13.5 mEq/L (7-13); BILIRUBIN TOTAL 1.8 mg/dL (0.2-1.0); BUN/CREATININE RATIO 14.1 (No establ ref range); CALCIUM 8.9 mg/dL (8.5-10.1); CREATININE 2.62 mg/dL (0.55-1.02); EST CRCL DRUG DOSING (CG) 21.83 mL/min; POTASSIUM,K 4.5 mmol/L (3.5-5.1); PROTEIN TOTAL,TP 6.7 g/dL (6.4-8.2)
[2023-12-24 18:29] LABS: A/G RATIO 0.76
[2023-12-24] MEDS: Sodium Chloride 0.9% 1,000 ML IV ONE (18:56)
[2023-12-24] MEDS: Sodium Chloride 0.9% 10 ML Syringe FLUSH PRN (18:56)
[2023-12-24] MEDS: cefTRIAXone 2 GM Vial IVPUSH ONE (19:31)
[2023-12-24] MEDS: Ondansetron 4 MG/2 ML SDV IVPUSH ONE (19:41)
[2023-12-24] MEDS ORDERED: Albuterol 0.083% 2.5 MG/3 ML Neb Soln NEB PRN (20:39)
[2023-12-24] MEDS ORDERED: Ondansetron 4 MG/2 ML SDV IVPUSH PRN (20:39)
[2023-12-24] MEDS ORDERED: Acetaminophen 325 MG Tab PO PRN (20:39)
[2023-12-24] MEDS ORDERED: Bisacodyl 5 MG Tab PO PRN (20:39)
[2023-12-24] MEDS ORDERED: Docusate Sodium 100 MG Cap PO PRN (20:39)
[2023-12-24] MEDS ORDERED: Albuterol/Ipratropium 3.0-0.5 MG/3 ML Neb Soln NEB PRN (20:39)
[2023-12-24] MEDS ORDERED: Acetaminophen/HYDROcodone 325-5 MG Tab PO PRN (20:39)
[2023-12-24] MEDS ORDERED: Melatonin 3 MG Tab PO PRN (20:43)
[2023-12-24] MEDS ORDERED: 50% Dextrose in Water 50 ML Syringe IVPUSH PRN (20:44)
[2023-12-24] MEDS ORDERED: Glucagon,Human Recombinant 1 MG Vial IM PRN (20:44)
[2023-12-24] MEDS: Insulin Lispro 100 Units/ML 3 ML Vial SUBCUT SCH (22:00)
[2023-12-24] MEDS: Azithromycin 500 MG in Sodium Chloride 0.9% 250 ML IV ONE (22:05)
[2023-12-25 06:37] LABS: BASOPHILS PERCENT AUTO 0.7 % (0.0-1.0); EOSINOPHILS PERCENT AUTO 5.9 % (1.0-3.0); HEMATOCRIT 25.5 % (37.0-47.0); HEMOGLOBIN 7.8 g/dL (12.0-16.0); LYMPHOCYTES PERCENT AUTO 25.5 % (20.5-50.1); MEAN CORPUSCULAR HEMOGLOBIN 30.4 pg (27.0-34.0); MEAN CORPUSCULAR HGB CONC 30.6 g/dL (33.0-35.0); MEAN CORPUSCULAR VOLUME 99.2 fL (80-100); MONOCYTES PERCENT AUTO 12.4 % (2-8); NEUTROPHILS PERCENT AUTO 55.5 % (42.2-75.2); PLATELET COUNT,PLT 74 10^3/uL (150-450); RED BLOOD CELL COUNT 2.57 10^6/uL (4.2-5.4); WHITE BLOOD CELL COUNT,WBC 4.4 10^3/uL (5.0-10.0)
[2023-12-25 06:48] LABS: ANION GAP 11.6 mEq/L (7-13); CREATININE 2.59 mg/dL (0.55-1.02); EST CRCL DRUG DOSING (CG) 21.19 mL/min; POTASSIUM,K 4.6 mmol/L (3.5-5.1)
[2023-12-25] MEDS: Azithromycin 250 MG Tab PO SCH (08:12)
[2023-12-25] MEDS: Enoxaparin 30 MG/0.3 ML Syringe SUBCUT SCH (08:15)
[2023-12-25 08:27] LABS: PERCENT FE SATURATION 18.9 % (20.0-50.0)
[2023-12-25] MEDS ORDERED: Amoxicillin/Clavulanate K 500-125 MG Tab ONE (08:48)
[2023-12-25] MEDS ORDERED: Amoxicillin/Clavulanate K 500-125 MG Tab PO ONE (09:52)
[2023-12-25] MEDS ORDERED: Ferrous Sulfate 325 MG Tab PO SCH (18:00)
== END 2023-12-25 09:53 | disposition home health service (06) ==
LOC: DL.ED 17:21 → INTOOBSV 19:07 → DL.MS 19:07
PROVIDERS: ADMIT Internal Medicine; ATTEND Internal Medicine
DX: N17.9 Acute kidney failure, unspecified (principal); J44.9 Chronic obstructive pulmonary disease, unspecified; E11.22 Type 2 diabetes mellitus with diabetic chronic kidney disease; I12.9 Hypertensive chronic kidney disease with stage 1 through stage 4 chronic kidney disease, or unspecified chronic kidney disease; N18.30 Chronic kidney disease, stage 3 unspecified; D63.1 Anemia in chronic kidney disease; K21.9 Gastro-esophageal reflux disease without esophagitis; E66.01 Morbid (severe) obesity due to excess calories; Z79.899 Other long term (current) drug therapy; Z79.4 Long term (current) use of insulin; Z68.42 Body mass index [BMI] 45.0-49.9, adult; Z79.82 Long term (current) use of aspirin; Z98.890 Other specified postprocedural states; Z91.018 Allergy to other foods
CPT/HCPCS: 36415; 71046; 80048; 80053; 82728; 82947; 83540; 83550; 85025; 99223; 99239; 99284; A9270; J0456; J0696; J1650; J1815; J2405; J7030; J7050; J3490

== ENCOUNTER 2024-04-21 16:39 | Emergency (ER) | payer BC ==
[2024-04-21] MEDS: Orphenadrine 60 MG/2 ML Inj IV ONE (17:54)
[2024-04-21 18:09] LABS: APPEARANCE,URINE CLEAR (CLEAR); BILIRUBIN,URINE NEGATIVE (NEGATIVE); COLOR,URINE YELLOW (YELLOW); GLUCOSE,URINE NEGATIVE (NEGATIVE); KETONES,URINE NEGATIVE (NEGATIVE); LEUKOCYTE ESTERASE,URINE NEGATIVE (NEGATIVE); NITRITE,URINE NEGATIVE (NEGATIVE); OCCULT BLOOD,URINE NEGATIVE (NEGATIVE); PROTEIN,URINE NEGATIVE (NEGATIVE); UROBILINOGEN,URINE 0.2 mg/dL (0.2-1.0)
[2024-04-21] MEDS ORDERED: Ondansetron 4 MG/2 ML SDV IVPUSH ONE (19:22)
[2024-04-21] MEDS ORDERED: Morphine 2 MG/ML SYRINGE IVPUSH ONE (19:22)
[2024-04-21] MEDS: Take Home: Cyclobenzaprine 10 MG Tab, 4 Tab Pack PO ONE (20:36)
[2024-04-21] MEDS: predniSONE 20 MG Tab PO ONE (20:36)
[2024-04-21] MEDS: Cyclobenzaprine 10 MG Tab PO ONE (20:36)
== END 2024-04-21 20:50 | disposition home or self-care (01) ==
LOC: DL.ED 16:39
DX: M48.061 Spinal stenosis, lumbar region without neurogenic claudication (principal); M54.17 Radiculopathy, lumbosacral region; I13.0 Hypertensive heart and chronic kidney disease with heart failure and stage 1 through stage 4 chronic kidney disease, or unspecified chronic kidney disease; I50.9 Heart failure, unspecified; N18.30 Chronic kidney disease, stage 3 unspecified; E11.21 Type 2 diabetes mellitus with diabetic nephropathy; E11.22 Type 2 diabetes mellitus with diabetic chronic kidney disease; E78.00 Pure hypercholesterolemia, unspecified; E66.9 Obesity, unspecified; Z68.42 Body mass index [BMI] 45.0-49.9, adult; Z86.16 Personal history of COVID-19; F17.210 Nicotine dependence, cigarettes, uncomplicated; Z79.899 Other long term (current) drug therapy; Z91.018 Allergy to other foods
CPT/HCPCS: 72131; 72192; 73700; 81003; 96374; 99285; A9270; J2360; J7512

== ENCOUNTER 2024-12-08 17:28 | Inpatient (IN) | payer BC ==
[2024-12-08 18:06] LABS: BASOPHILS PERCENT AUTO 0.6 % (0.0-1.0); LYMPHOCYTES PERCENT AUTO 15.6 % (20.5-50.1); MEAN CORPUSCULAR HEMOGLOBIN 31.1 pg (27.0-34.0); MEAN CORPUSCULAR HGB CONC 32.3 g/dL (33.0-35.0); MEAN CORPUSCULAR VOLUME 96.3 fL (80-100); MONOCYTES PERCENT AUTO 6.4 % (2-8); NEUTROPHILS PERCENT AUTO 71.4 % (42.2-75.2); PLATELET COUNT,PLT 88 10^3/uL (150-450); RED BLOOD CELL COUNT 3.22 10^6/uL (4.2-5.4); WHITE BLOOD CELL COUNT,WBC 9.7 10^3/uL (5.0-10.0)
[2024-12-08] MEDS: Ondansetron 4 MG/2 ML SDV IVPUSH ONE (18:28)
[2024-12-08] MEDS: diphenhydrAMINE 50 MG/ML SDV IVPUSH ONE ×2 (18:28→23:19)
[2024-12-08] MEDS: Doxycycline 100 MG in Sodium Chloride 0.9% 100 ML IV ONE (18:38)
[2024-12-08 18:41] LABS: A/G RATIO 0.9; ALBUMIN 3.5 g/dL (3.4-5.0); ANION GAP 17.1 mEq/L (7-13); BILIRUBIN TOTAL 1.9 mg/dL (0.2-1.0); BUN/CREATININE RATIO 20.2 (No establ ref range); C-REACTIVE PROTEIN 1.88 ng/dL (<=0.50); CALCIUM 9.2 mg/dL (8.5-10.1); CREATININE 2.33 mg/dL (0.55-1.02); EST CRCL DRUG DOSING (CG) 23.28 mL/min; POTASSIUM,K 4.1 mmol/L (3.5-5.1); PROTEIN TOTAL,TP 7.3 g/dL (6.4-8.2)
[2024-12-08 19:06] LABS: LACTIC ACID 3.1 mmol/L (0.4-2.0)
[2024-12-08] MEDS: Lactated Ringers 1,000 ML IV ONE ×2 (19:10→22:26)
[2024-12-08] MEDS ORDERED: Sennosides/Docusate Sodium 50-8.6 MG Tab PO PRN (21:34)
[2024-12-08] MEDS ORDERED: Magnesium Hydroxide 400 MG/5 ML Susp 30 ML Cup PO PRN (21:34)
[2024-12-08] MEDS ORDERED: Acetaminophen 325 MG Tab PO PRN (21:34)
[2024-12-08] MEDS ORDERED: Albuterol/Ipratropium 3.0-0.5 MG/3 ML Neb Soln NEB PRN (21:34)
[2024-12-08] MEDS ORDERED: Bisacodyl 5 MG Tab PO PRN (21:34)
[2024-12-08] MEDS ORDERED: Melatonin 3 MG Tab PO PRN (21:34)
[2024-12-08] MEDS ORDERED: Docusate Sodium 100 MG Cap PO PRN (21:34)
[2024-12-08] MEDS ORDERED: Ondansetron 4 MG/2 ML SDV IVPUSH PRN (21:34)
[2024-12-08] MEDS ORDERED: 50% Dextrose in Water 50 ML Syringe IVPUSH PRN (21:39)
[2024-12-08] MEDS ORDERED: Glucagon,Human Recombinant 1 MG Vial IM PRN (21:39)
[2024-12-08] MEDS ORDERED: Piperacillin/Tazobactam 3.375 GM in Sodium Chloride 0.9% 100 ML IV SCH (22:00)
[2024-12-08] MEDS: Heparin Sodium 5,000 Units/ML Vial SUBCUT SCH (22:27)
[2024-12-08] MEDS: Piperacillin/Tazobactam 4.5 GM in Sodium Chloride 0.9% 100 ML IV ONE (22:43)
[2024-12-09] MEDS: Piperacillin/Tazobactam 4.5 GM in Sodium Chloride 0.9% 100 ML IV SCH (05:29)
[2024-12-09 06:36] LABS: BASOPHILS PERCENT AUTO 0.8 % (0.0-1.0); EOSINOPHILS PERCENT AUTO 6.4 % (1.0-3.0); HEMATOCRIT 26.6 % (37.0-47.0); HEMOGLOBIN 8.3 g/dL (12.0-16.0); LYMPHOCYTES PERCENT AUTO 14.9 % (20.5-50.1); MEAN CORPUSCULAR HEMOGLOBIN 30.9 pg (27.0-34.0); MEAN CORPUSCULAR HGB CONC 31.2 g/dL (33.0-35.0); MEAN CORPUSCULAR VOLUME 98.9 fL (80-100); MONOCYTES PERCENT AUTO 9.7 % (2-8); NEUTROPHILS PERCENT AUTO 68.2 % (42.2-75.2); PLATELET COUNT,PLT 72 10^3/uL (150-450); RED BLOOD CELL COUNT 2.69 10^6/uL (4.2-5.4); WHITE BLOOD CELL COUNT,WBC 7.4 10^3/uL (5.0-10.0)
[2024-12-09 07:05] LABS: CALCIUM 8.8 mg/dL (8.5-10.1); CREATININE 2.46 mg/dL (0.55-1.02); EST CRCL DRUG DOSING (CG) 22.05 mL/min
[2024-12-09 07:20] LABS: HEMOGLOBIN A1C 5.7 % (<5.7)
[2024-12-09] MEDS: Insulin Lispro 100 Units/ML 3 ML Vial SUBCUT SCH (09:53)
[2024-12-09] MEDS: Heparin Sodium 5,000 Units/ML Vial SUBCUT SCH (10:16)
[2024-12-09] MEDS: Saccharomyces Boulardii (Probiotic) 250 MG Cap PO SCH (21:19)
[2024-12-09] MEDS ORDERED: Cyclobenzaprine 10 MG Tab PO PRN (22:08)
[2024-12-09] MEDS ORDERED: Famotidine 20 MG Tab PO PRN (22:08)
[2024-12-10] MEDS: Clindamycin Phosphate in D5W 600 MG in Premix Bag 1 BAG IV SCH (00:49)
[2024-12-10] MEDS ORDERED: Clindamycin in 0.9 % Sod Chlor 600 MG in Premix Bag 1 BAG IV SCH (01:00)
[2024-12-10] MEDS: Acetaminophen/HYDROcodone 325-5 MG Tab PO PRN (03:12)
[2024-12-10] MEDS: Levothyroxine 150 MCG Tab PO SCH (05:08)
[2024-12-10] MEDS: Clindamycin in 0.9 % Sod Chlor 600 MG in Premix Bag 1 BAG IV SCH (05:08)
[2024-12-10] MEDS: Pantoprazole 40 MG Tab.CR PO SCH (05:09)
[2024-12-10] MEDS: Levothyroxine 25 MCG Tab PO SCH (05:09)
[2024-12-10 06:27] LABS: BASOPHILS PERCENT AUTO 0.8 % (0.0-1.0); EOSINOPHILS PERCENT AUTO 7.9 % (1.0-3.0); HEMATOCRIT 24.3 % (37.0-47.0); LYMPHOCYTES PERCENT AUTO 15.5 % (20.5-50.1); MEAN CORPUSCULAR HEMOGLOBIN 31.1 pg (27.0-34.0); MEAN CORPUSCULAR HGB CONC 32.9 g/dL (33.0-35.0); MEAN CORPUSCULAR VOLUME 94.6 fL (80-100); MONOCYTES PERCENT AUTO 10.2 % (2-8); NEUTROPHILS PERCENT AUTO 65.6 % (42.2-75.2); PLATELET COUNT,PLT 77 10^3/uL (150-450); RED BLOOD CELL COUNT 2.57 10^6/uL (4.2-5.4); WHITE BLOOD CELL COUNT,WBC 7.7 10^3/uL (5.0-10.0)
[2024-12-10 06:55] LABS: ANION GAP 11.4 mEq/L (7-13); C-REACTIVE PROTEIN 2.46 ng/dL (<=0.50); CALCIUM 8.1 mg/dL (8.5-10.1); CREATININE 2.33 mg/dL (0.55-1.02); EST CRCL DRUG DOSING (CG) 23.28 mL/min; MAGNESIUM 2.2 mg/dL (1.8-2.4); POTASSIUM,K 4.4 mmol/L (3.5-5.1)
[2024-12-10] MEDS: Carvedilol 6.25 MG Tab PO SCH (09:43)
[2024-12-10] MEDS: Aspirin 81 MG Tab.Chew PO SCH (09:43)
[2024-12-10] MEDS: Folic Acid 1 MG Tab PO SCH (09:44)
[2024-12-10] MEDS: DULoxetine 30 MG Cap PO SCH (09:44)
[2024-12-10] MEDS: Multivitamin Tab PO SCH (09:44)
[2024-12-10] MEDS: Fluticasone NASAL Spray 16 GM Bottle NASBOTH SCH (09:45)
[2024-12-10] MEDS: Insulin Glarg,Human.Rec.Analog 100 Unit/ML 10 ML Vial SUBCUT SCH ×2 (09:46→21:32)
[2024-12-10] MEDS: Insulin Lispro 100 Units/ML 3 ML Vial SUBCUT SCH (09:55)
[2024-12-10] MEDS: Cholecalciferol (Vitamin D3) 25 MCG Tab PO SCH (09:56)
[2024-12-10] MEDS: Gabapentin 400 MG Cap PO SCH (10:43)
[2024-12-10] MEDS ORDERED: Gabapentin 100 MG Cap PO SCH (14:00)
[2024-12-10] MEDS: Gabapentin 300 MG Cap PO SCH (14:47)
[2024-12-10] MEDS: atorvaSTATin 20 MG Tab PO SCH (21:26)
[2024-12-11 06:55] LABS: HEMOGLOBIN 8.3 g/dL (12.0-16.0); MEAN CORPUSCULAR HEMOGLOBIN 30.7 pg (27.0-34.0); MEAN CORPUSCULAR HGB CONC 33.2 g/dL (33.0-35.0); MEAN CORPUSCULAR VOLUME 92.6 fL (80-100); PLATELET COUNT,PLT 87 10^3/uL (150-450); WHITE BLOOD CELL COUNT,WBC 9.1 10^3/uL (5.0-10.0)
[2024-12-11 07:05] LABS: BASOPHILS PERCENT AUTO 0.9 % (0.0-1.0); EOSINOPHILS PERCENT AUTO 8.2 % (1.0-3.0); LYMPHOCYTES PERCENT AUTO 15.6 % (20.5-50.1); MONOCYTES PERCENT AUTO 8.2 % (2-8); NEUTROPHILS PERCENT AUTO 67.1 % (42.2-75.2)
[2024-12-11 07:21] LABS: ANION GAP 17.5 mEq/L (7-13); C-REACTIVE PROTEIN 2.66 ng/dL (<=0.50); CALCIUM 8.1 mg/dL (8.5-10.1); CREATININE 2.41 mg/dL (0.55-1.02); EST CRCL DRUG DOSING (CG) 22.51 mL/min; MAGNESIUM 2.3 mg/dL (1.8-2.4); POTASSIUM,K 4.5 mmol/L (3.5-5.1)
[2024-12-11 08:32] LABS: BAND PERCENT MAN 1 %; EOSINOPHILS PERCENT MAN 9 % (1-3); LYMPHOCYTES PERCENT MAN 13 % (20-50); MONOCYTES PERCENT MAN 7 % (2-8); NRBC MANUAL 1 /100WBC; SEG NEUTROPHILS PERCENT MAN 69 % (42-75)
== END 2024-12-11 11:19 | disposition home or self-care (01) | DRG 385 ==
LOC: DL.ED 17:28 → DL.MS 19:35
PROVIDERS: ADMIT Internal Medicine; ATTEND Internal Medicine
DX: M79.3 Panniculitis, unspecified (principal); L03.311 Cellulitis of abdominal wall; D64.9 Anemia, unspecified; Z68.42 Body mass index [BMI] 45.0-49.9, adult; H54.7 Unspecified visual loss; I50.9 Heart failure, unspecified; E78.00 Pure hypercholesterolemia, unspecified; I25.2 Old myocardial infarction; E11.21 Type 2 diabetes mellitus with diabetic nephropathy; I13.0 Hypertensive heart and chronic kidney disease with heart failure and stage 1 through stage 4 chronic kidney disease, or unspecified chronic kidney disease; M54.9 Dorsalgia, unspecified; G89.29 Other chronic pain; M79.7 Fibromyalgia; E11.40 Type 2 diabetes mellitus with diabetic neuropathy, unspecified; N17.9 Acute kidney failure, unspecified; E86.0 Dehydration; E87.20 Acidosis, unspecified; N18.4 Chronic kidney disease, stage 4 (severe); G47.33 Obstructive sleep apnea (adult) (pediatric); J44.0 Chronic obstructive pulmonary disease with (acute) lower respiratory infection; J20.9 Acute bronchitis, unspecified; E66.813 Obesity, class 3; N39.0 Urinary tract infection, site not specified; K76.0 Fatty (change of) liver, not elsewhere classified; E11.65 Type 2 diabetes mellitus with hyperglycemia; Z79.899 Other long term (current) drug therapy; Z86.73 Personal history of transient ischemic attack (TIA), and cerebral infarction without residual deficits; Z98.890 Other specified postprocedural states; Z88.8 Allergy status to other drugs, medicaments and biological substances; Z86.16 Personal history of COVID-19; Z72.0 Tobacco use
CPT/HCPCS: 36415; 80048; 80053; 82947; 83036; 83605; 83735; 85025; 86140; 87040; 94010; 96365; 96375; 99284; 99284-25; A9270-GY; J1200; J1644; J1815-GY; J2405; J2543; J3490; J7040; J7120

== ENCOUNTER 2025-01-19 19:09 | Emergency (ER) | payer BC | END 2025-01-19 19:30 | disposition home or self-care (01) | LOC: DL.ED 19:09 | DX: Z53.21 Procedure and treatment not carried out due to patient leaving prior to being seen by health care provider (principal) ==

== ENCOUNTER 2025-02-09 18:12 | Observation (INO) | payer BC ==
[2025-02-09] MEDS ORDERED: Sodium Chloride 0.9% 10 ML Syringe FLUSH PRN (18:41)
[2025-02-09] MEDS ORDERED: Glucagon,Human Recombinant 1 MG Vial IM PRN ×3 (18:47→19:10)
[2025-02-09] MEDS ORDERED: 50% Dextrose in Water 50 ML Syringe IVPUSH PRN ×3 (18:47→19:10)
[2025-02-09] MEDS ORDERED: Albuterol 6.7 GM Inhaler INH PRN (18:48)
[2025-02-09] MEDS ORDERED: Non-Formulary Medication 1 Each (Insulin Degludec [Tresiba] 100 UNIT/ML Vial) INJECT SCH (19:00)
[2025-02-09] MEDS: Non-Formulary Medication 1 Each (Carvedilol [Carvedilol] 12.5 MG Tablet) PO SCH (19:38)
[2025-02-09 19:41] LABS: HEMATOCRIT 23.5 % (37.0-47.0); HEMOGLOBIN 7.6 g/dL (12.0-16.0); MEAN CORPUSCULAR HEMOGLOBIN 30.6 pg (27.0-34.0); MEAN CORPUSCULAR HGB CONC 32.3 g/dL (33.0-35.0); MEAN CORPUSCULAR VOLUME 94.8 fL (80-100); PLATELET COUNT,PLT 59 10^3/uL (150-450); RED BLOOD CELL COUNT 2.48 10^6/uL (4.2-5.4)
[2025-02-09 20:05] LABS: WHITE BLOOD CELL COUNT,WBC 0.3 10^3/uL (5.0-10.0)
[2025-02-09 20:06] LABS: BASOPHILS PERCENT AUTO 6.9 % (0.0-1.0); EOSINOPHILS PERCENT AUTO 10.3 % (1.0-3.0); LYMPHOCYTES PERCENT AUTO 58.6 % (20.5-50.1); MONOCYTES PERCENT AUTO 6.9 % (2-8); NEUTROPHILS PERCENT AUTO 17.3 % (42.2-75.2)
[2025-02-09] MEDS: Fluticasone NASAL Spray 16 GM Bottle NASBOTH SCH (20:15)
[2025-02-09] MEDS: diphenhydrAMINE 25 MG Tab PO SCH (20:15)
[2025-02-09] MEDS: Acetaminophen 325 MG Tab PO PRN (20:15)
[2025-02-09] MEDS: Insulin Regular, Human 100 Units/ML 10 ML Vial IV ONE (20:16)
[2025-02-09] MEDS: Famotidine 20 MG/2 ML SDV IVPUSH ONE (20:16)
[2025-02-09] MEDS: Insulin Glarg,Human.Rec.Analog 100 Unit/ML 10 ML Vial SUBCUT ONE (20:16)
[2025-02-09] MEDS: Sodium Chloride 0.9% 10 ML Syringe FLUSH SCH (20:17)
[2025-02-09] MEDS: Insulin Lispro 100 Units/ML 3 ML Vial SUBCUT SCH (20:17)
[2025-02-09] MEDS: Sodium Chloride 0.9% 1,000 ML IV SCH (20:17)
[2025-02-09 20:53] LABS: BASOPHILS PERCENT MAN 1; EOSINOPHILS PERCENT MAN 3 % (1-3); LYMPHOCYTES PERCENT MAN 37 % (20-50); MONOCYTES PERCENT MAN 1 % (2-8); SEG NEUTROPHILS PERCENT MAN 8 % (42-75)
[2025-02-10] MEDS: Carvedilol 6.25 MG Tab PO SCH (09:19)
[2025-02-10] MEDS: Insulin Lispro 100 Units/ML 3 ML Vial SUBCUT SCH (09:25)
[2025-02-10] MEDS: Furosemide 40 MG/4 ML VIAL IVPUSH ONE (11:15)
== END 2025-02-10 12:00 | disposition home or self-care (01) ==
LOC: UNDOADMOB 18:12 → DL.MS 18:12
PROVIDERS: ADMIT Internal Medicine; ATTEND Internal Medicine
DX: D64.81 Anemia due to antineoplastic chemotherapy (principal); D69.59 Other secondary thrombocytopenia; T45.1X5A Adverse effect of antineoplastic and immunosuppressive drugs, initial encounter; C34.90 Malignant neoplasm of unspecified part of unspecified bronchus or lung; I11.0 Hypertensive heart disease with heart failure; I50.9 Heart failure, unspecified; E11.40 Type 2 diabetes mellitus with diabetic neuropathy, unspecified; J44.9 Chronic obstructive pulmonary disease, unspecified; E78.00 Pure hypercholesterolemia, unspecified; Z79.4 Long term (current) use of insulin; Z79.899 Other long term (current) drug therapy
CPT/HCPCS: 36415; 82947; 85025; 96374; A9270; G0378; J1815; J1940; J7030; 99223; 99239

== ENCOUNTER 2025-02-17 10:35 | Inpatient (IN) | payer BC ==
[2025-02-17] MEDS ORDERED: Sodium Chloride 0.9% 10 ML Syringe FLUSH PRN (10:46)
[2025-02-17 11:10] LABS: MEAN CORPUSCULAR HEMOGLOBIN 28.9 pg (27.0-34.0); MEAN CORPUSCULAR HGB CONC 33.7 g/dL (33.0-35.0); PLATELET COUNT,PLT 124 10^3/uL (150-450); RED BLOOD CELL COUNT 2.28 10^6/uL (4.2-5.4); WHITE BLOOD CELL COUNT,WBC 13.1 10^3/uL (5.0-10.0)
[2025-02-17 11:18] LABS: BASOPHILS PERCENT AUTO 0.2 % (0.0-1.0); EOSINOPHILS PERCENT AUTO 0.2 % (1.0-3.0); HEMATOCRIT 19.6 % (37.0-47.0); HEMOGLOBIN 6.6 g/dL (12.0-16.0); LYMPHOCYTES PERCENT AUTO 13.3 % (20.5-50.1); MONOCYTES PERCENT AUTO 7.5 % (2-8); NEUTROPHILS PERCENT AUTO 78.8 % (42.2-75.2)
[2025-02-17 11:34] LABS: ALBUMIN 2.5 g/dL (3.4-5.0); ANION GAP 10.8 mEq/L (7-13); BILIRUBIN TOTAL 3.7 mg/dL (0.2-1.0); BUN/CREATININE RATIO 26.1 (No establ ref range); C-REACTIVE PROTEIN 3.51 ng/dL (<=0.50); CREATININE 2.07 mg/dL (0.55-1.02); EST CRCL DRUG DOSING (CG) 26.2 mL/min; MAGNESIUM 1.9 mg/dL (1.8-2.4); POTASSIUM,K 3.8 mmol/L (3.5-5.1); PROTEIN TOTAL,TP 5.7 g/dL (6.4-8.2)
[2025-02-17 11:38] LABS: A/G RATIO 0.78
[2025-02-17 11:40] LABS: LACTIC ACID 2.3 mmol/L (0.4-2.0)
[2025-02-17 11:54] LABS: PERCENT FE SATURATION 25.7 % (20.0-50.0)
[2025-02-17 11:57] LABS: BAND PERCENT MAN 6 %; LYMPHOCYTES PERCENT MAN 19 % (20-50); MONOCYTES PERCENT MAN 9 % (2-8); SEG NEUTROPHILS PERCENT MAN 66 % (42-75)
[2025-02-17 12:00] LABS: PROTHROMBIN TIME 10.4 SEC (9.0-12.0)
[2025-02-17 12:07] LABS: APPEARANCE,URINE CLOUDY (CLEAR); BILIRUBIN,URINE NEGATIVE (NEGATIVE); COLOR,URINE DARK YELLOW (YELLOW); GLUCOSE,URINE NEGATIVE (NEGATIVE); KETONES,URINE NEGATIVE (NEGATIVE); LEUKOCYTE ESTERASE,URINE SMALL (NEGATIVE); NITRITE,URINE NEGATIVE (NEGATIVE); OCCULT BLOOD,URINE TRACE-LYSED (NEGATIVE); PROTEIN,URINE 100 (NEGATIVE); UROBILINOGEN,URINE >=8.0 mg/dL (0.2-1.0)
[2025-02-17 12:16] LABS: BACTERIA,URINE MODERATE /HPF (0-FEW/HPF); EPITHELIAL CELLS,URINE MODERATE /HPF (NOT SEEN); RBC,URINE 0-5 /HPF (0-5); WBC,URINE 75-100 /HPF (0-5/HPF)
[2025-02-17] MEDS: cefTRIAXone 2 GM Vial IVPUSH ONE (12:25)
[2025-02-17] MEDS: Ondansetron 4 MG/2 ML SDV IVPUSH ONE (12:48)
[2025-02-17] MEDS: diphenhydrAMINE 50 MG/ML SDV IVPUSH ONE (13:12)
[2025-02-17] MEDS: methylPREDNISolone Sodium Succinate 125 MG/2 ML SDV IVPUSH ONE (13:23)
[2025-02-17] MEDS ORDERED: Acetaminophen/oxyCODONE 325-5 MG Tab PO PRN (15:29)
[2025-02-17] MEDS ORDERED: Temazepam 15 MG Cap PO PRN (15:29)
[2025-02-17] MEDS ORDERED: Magnesium Hydroxide 400 MG/5 ML Susp 30 ML Cup PO PRN (15:29)
[2025-02-17] MEDS ORDERED: Acetaminophen 325 MG Tab PO PRN (15:29)
[2025-02-17] MEDS ORDERED: Sennosides/Docusate Sodium 50-8.6 MG Tab PO PRN (15:29)
[2025-02-17] MEDS ORDERED: HYDROmorphone 0.5 MG/0.5 ML Syringe IVPUSH PRN (15:29)
[2025-02-17] MEDS ORDERED: Polyethylene Glycol 3350 Powder 17 GM Packet PO PRN (15:29)
[2025-02-17] MEDS ORDERED: Naloxone 2 MG/2 ML Syringe IVPUSH PRN (15:29)
[2025-02-17] MEDS ORDERED: guaiFENesin/Dextromethorphan 100-10 MG/5 ML Soln 5 ML Cup PO PRN (15:36)
[2025-02-17] MEDS ORDERED: Albuterol 6.7 GM Inhaler INH PRN (15:40)
[2025-02-17] MEDS ORDERED: Cyclobenzaprine 10 MG Tab PO PRN (15:40)
[2025-02-17] MEDS ORDERED: Prochlorperazine 5 MG Tab PO PRN (15:40)
[2025-02-17] MEDS ORDERED: Non-Formulary Medication 1 Each (Ketoconazole [Ketoconazole] 120 ML Shampoo) TOP SCH (15:45)
[2025-02-17] MEDS ORDERED: Glucagon,Human Recombinant 1 MG Vial IM PRN (15:46)
[2025-02-17] MEDS ORDERED: 50% Dextrose in Water 50 ML Syringe IVPUSH PRN (15:46)
[2025-02-17 16:09] LABS: T4 FREE 1.11 ng/dL (0.76-1.46); TSH ULTRASENSITIVE 4.92 uIU/mL (0.36-3.74)
[2025-02-17] MEDS: Nicotine 21 MG/24 Hr Patch TRDERM ONE (16:17)
[2025-02-17] MEDS: Azithromycin 500 MG in Sodium Chloride 0.9% 250 ML IV ONE (16:17)
[2025-02-17] MEDS: Albumin Human 25 GM in Premix Bag 1 BAG IV SCH (16:17)
[2025-02-17] MEDS: Pantoprazole 40 MG Tab.CR PO SCH (16:49)
[2025-02-17] MEDS: Insulin Lispro 100 Units/ML 3 ML Vial SUBCUT SCH (17:11)
[2025-02-17] MEDS: Furosemide 100 MG in Sodium Chloride 0.9% 90 ML IV SCH (17:12)
[2025-02-17] MEDS: Fluticasone NASAL Spray 16 GM Bottle NASBOTH SCH (20:12)
[2025-02-17] MEDS: Acetaminophen 500 MG Tab PO SCH (20:12)
[2025-02-17] MEDS: Gabapentin 400 MG Cap PO SCH (20:12)
[2025-02-17] MEDS: Carvedilol 6.25 MG Tab PO SCH (20:13)
[2025-02-17] MEDS: Sodium Bicarbonate 650 MG Tab PO SCH (20:13)
[2025-02-17] MEDS: Hydrocortisone 20 MG Tab PO SCH (20:14)
[2025-02-17] MEDS: Saccharomyces Boulardii (Probiotic) 250 MG Cap PO SCH (20:14)
[2025-02-17] MEDS: guaiFENesin 600 MG Tab.ER PO SCH (20:15)
[2025-02-17] MEDS ORDERED: Non-Formulary Medication 1 Each (Magnesium Chloride [Mag Delay] 64 MG Tablet.Dr) PO SCH (21:00)
[2025-02-17] MEDS: Insulin Glarg,Human.Rec.Analog 100 Unit/ML 10 ML Vial SUBCUT SCH (22:09)
[2025-02-17] MEDS: Formoterol/Mometasone 100-5 MCG 8.8 GM Inhaler INH SCH (22:15)
[2025-02-18] MEDS: Albuterol/Ipratropium 3.0-0.5 MG/3 ML Neb Soln NEB PRN (05:33)
[2025-02-18 06:49] LABS: BASOPHILS PERCENT AUTO 0.2 % (0.0-1.0); LYMPHOCYTES PERCENT AUTO 7.5 % (20.5-50.1); MEAN CORPUSCULAR HEMOGLOBIN 28.9 pg (27.0-34.0); MEAN CORPUSCULAR HGB CONC 32.8 g/dL (33.0-35.0); MEAN CORPUSCULAR VOLUME 88.2 fL (80-100); MONOCYTES PERCENT AUTO 4.6 % (2-8); NEUTROPHILS PERCENT AUTO 87.7 % (42.2-75.2); PLATELET COUNT,PLT 95 10^3/uL (150-450); RED BLOOD CELL COUNT 2.28 10^6/uL (4.2-5.4); WHITE BLOOD CELL COUNT,WBC 10.9 10^3/uL (5.0-10.0)
[2025-02-18 07:04] LABS: HEMATOCRIT 20.1 % (37.0-47.0); HEMOGLOBIN 6.6 g/dL (12.0-16.0)
[2025-02-18 07:29] LABS: ALBUMIN 3.3 g/dL (3.4-5.0); ANION GAP 11.3 mEq/L (7-13); BILIRUBIN TOTAL 2.9 mg/dL (0.2-1.0); BUN/CREATININE RATIO 25.2 (No establ ref range); C-REACTIVE PROTEIN 3.13 ng/dL (<=0.50); CALCIUM 8.3 mg/dL (8.5-10.1); CREATININE 2.02 mg/dL (0.55-1.02); EST CRCL DRUG DOSING (CG) 26.85 mL/min; MAGNESIUM 2.3 mg/dL (1.8-2.4); POTASSIUM,K 4.3 mmol/L (3.5-5.1)
[2025-02-18 07:36] LABS: A/G RATIO 1.22
[2025-02-18] MEDS ORDERED: Modafinil 100 MG Tab PO SCH (09:00)
[2025-02-18] MEDS: Nicotine 21 MG/24 Hr Patch TRDERM SCH (09:20)
[2025-02-18] MEDS: cefTRIAXone 2 GM Vial IVPUSH SCH (09:20)
[2025-02-18] MEDS: Allopurinol 100 MG Tab PO SCH (09:21)
[2025-02-18] MEDS: DULoxetine 30 MG Cap PO SCH (09:21)
[2025-02-18] MEDS: Folic Acid 1 MG Tab PO SCH (09:21)
[2025-02-18] MEDS: Levothyroxine 150 MCG Tab PO SCH (09:21)
[2025-02-18] MEDS: Cholecalciferol (Vitamin D3) 25 MCG Tab PO SCH (09:21)
[2025-02-18] MEDS: Hydrocortisone 20 MG Tab PO SCH (09:22)
[2025-02-18] MEDS: Modafinil 100 MG Tab PO SCH (09:22)
[2025-02-18] MEDS: Aspirin 81 MG Tab.Chew PO SCH (09:22)
[2025-02-18] MEDS: Multivitamins with Iron/Calcium/Folic Acid/Minerals Tab PO SCH (09:22)
[2025-02-18] MEDS: Calcium Carbonate 500 MG Tab.Chew PO SCH (09:22)
[2025-02-18] MEDS: Nystatin Crm 15 GM Tube TOP SCH (09:23)
[2025-02-18] MEDS: Azithromycin 500 MG in Sodium Chloride 0.9% 250 ML IV SCH (09:23)
[2025-02-18] MEDS: Fludrocortisone 0.1 MG Tab PO SCH (09:32)
[2025-02-18] MEDS: Ondansetron 4 MG/2 ML SDV IVPUSH PRN (09:45)
[2025-02-18] MEDS ORDERED: propofoL 1,000 MG/100 ML 100 ML IV SCH (11:45)
[2025-02-18] MEDS: Propofol 200 MG/20 ML SDV IVPUSH ONE (11:59)
[2025-02-18] MEDS: Succinylcholine 200 MG/10 ML MDV IVPUSH ONE (12:00)
[2025-02-18] MEDS: Rocuronium 100 MG/10 ML MDV IVPUSH ONE (12:10)
[2025-02-18] MEDS: fentaNYL 500 MCG in Sodium Chloride 0.9% 50 ML IV SCH (12:20)
[2025-02-18] MEDS: fentaNYL 100 MCG/2 ML SDV IVPUSH ONE (12:41)
[2025-02-18] MEDS: Ziprasidone Mesylate 20 MG Vial IM ONE (15:06)
[2025-02-18] MEDS: Sodium Chloride 0.9% 50 ML ONE (15:06)
[2025-02-18] MEDS: fentaNYL 100 MCG/2 ML SDV ONE ×2 (15:24)
[2025-02-18] MEDS: Midazolam 5 MG/ML 10 ML MDV IV ONE (16:12)
[2025-02-18] MEDS: fentaNYL 250 MCG in Sodium Chloride 0.9% 50 ML IV SCH (16:14)
== END 2025-02-18 13:10 | DRG 194 ==
LOC: DL.ED 10:35 → DL.MS 12:34
PROVIDERS: ADMIT Internal Medicine; ATTEND Internal Medicine
PROC: 30233N1 Transfusion of Nonautologous Red Blood Cells into Peripheral Vein, Percutaneous Approach (ICD-10-PCS; principal; 2025-02-17)
PROC: 0BH17EZ Insertion of Endotracheal Airway into Trachea, Via Natural or Artificial Opening (ICD-10-PCS; principal; 2025-02-17)
DX: I13.0 Hypertensive heart and chronic kidney disease with heart failure and stage 1 through stage 4 chronic kidney disease, or unspecified chronic kidney disease (principal); D50.9 Iron deficiency anemia, unspecified; E11.22 Type 2 diabetes mellitus with diabetic chronic kidney disease; D63.8 Anemia in other chronic diseases classified elsewhere; J68.0 Bronchitis and pneumonitis due to chemicals, gases, fumes and vapors; N04.9 Nephrotic syndrome with unspecified morphologic changes; N39.0 Urinary tract infection, site not specified; Z68.43 Body mass index [BMI] 50.0-59.9, adult; D65 Disseminated intravascular coagulation [defibrination syndrome]; G93.41 Metabolic encephalopathy; J80 Acute respiratory distress syndrome; C34.90 Malignant neoplasm of unspecified part of unspecified bronchus or lung; E11.65 Type 2 diabetes mellitus with hyperglycemia; G47.33 Obstructive sleep apnea (adult) (pediatric); E44.0 Moderate protein-calorie malnutrition; E88.09 Other disorders of plasma-protein metabolism, not elsewhere classified; E66.813 Obesity, class 3; H54.7 Unspecified visual loss; I50.9 Heart failure, unspecified; M54.9 Dorsalgia, unspecified; M79.7 Fibromyalgia; E78.00 Pure hypercholesterolemia, unspecified; I25.2 Old myocardial infarction; G89.29 Other chronic pain; N18.4 Chronic kidney disease, stage 4 (severe); E03.9 Hypothyroidism, unspecified; F17.200 Nicotine dependence, unspecified, uncomplicated; K76.0 Fatty (change of) liver, not elsewhere classified; E11.21 Type 2 diabetes mellitus with diabetic nephropathy; Z88.8 Allergy status to other drugs, medicaments and biological substances; Z79.4 Long term (current) use of insulin; Z86.16 Personal history of COVID-19; Z86.73 Personal history of transient ischemic attack (TIA), and cerebral infarction without residual deficits; Z98.890 Other specified postprocedural states; Z79.899 Other long term (current) drug therapy; Z79.82 Long term (current) use of aspirin
CPT/HCPCS: 31500; 36415; 36430; 51702; 71045; 71046; 80053; 81001; 82272; 82306; 82550; 82728; 82947; 83540; 83550; 83605; 83735; 83880; 84439; 84443; 84484; 85025; 85610; 86140; 86850; 86870; 86900; 86901; 86902; 86920; 86922; 87040; 87070; 87086; 87088; 87186; 87205; 93005; 93010; 94640; 96374; 96375; 99211; 99285; 99285-25; A9270-GY; J0330; J0456; J0696; J1200; J1815-GY; J1938; J2250; J2405; J2704; J2919; J3010; J3490; J7050; P9016; P9047